=== PATIENT | female | born 1965 | race Caucasian/White ===

== ENCOUNTER 2016-09-19 12:22 | Inpatient (IN) ==
[2016-09-19] MEDS ORDERED: ONDANSETRON 4 MG/2 ML VIAL IV PRN ×2 (12:31→17:04)
[2016-09-19] MEDS ORDERED: ALBUTEROL/IPRATROPIUM 3 ML NEB RESP TX PRN (12:36)
--- NOTE | 2016-09-19 12:42 | Pulmonology History & Physical ---
<JenyJuliana brantley - Last Filed: 09/19/16 12:42> History of Present Illness Chief complaint: RLQ pain, acute appendicitis History of present illness: Ms. Barrientos is a 51 year old female <ArtemRosalio zuniga - Last Filed: 09/19/16 16:07> History of Present Illness History of present illness: Ms. Barrientos is a 51 year old white female who was seen as an emergency work in in my office this morning. Patient was referred by Elsy Faith. She had a 3 day history of right lower quadrant abdominal pain. This is begun a slightly suprapubic area but had localized in the right lower quadrant. She said any movement aggravated it. She may have had some fever she did not think she had any chills she denied any diaphoresis. Patient said her bowel movements have been normal and there were no other complaints of anything. The remainder the review of systems was negative. The patient said approximately 4 years ago it was thought that she might have appendicitis but her symptoms resolved and she did not require surgery Allergies none Medicines. None Past history no medical conditions Social history. Patient has a 4 year college bachelor degree she drinks caffeine every day she is she never used tobacco she is a light drinker of alcohol. She works for [employer] Family history is positive for stroke and arthritis. Lab done at my office. White count was 10,784 segs 10 lymphs 4 monos. H&H is 15.3/44.4 with normal indices platelets 197,000. Urinalysis was normal. Creatinine was 0.62 BUN 16 glucose 99 alkaline phosphorus transaminases total bilirubin albumin sodium potassium and chloride were normal total protein was 8.3 with normal being 6.4-8.[address] scan of the abdomen and pelvis showed acute appendix Physical exam. Patient's 5 feet 6 inches tall. Weighs 175 pounds. Blood pressure 124/84. O2 sats 95%. Heart rate was 88 and regular respiratory rate was 18-20 Psychiatric oriented 3. Intelligent HEENT were normal. Neurologic. Cranial nerves are intact. Long track motor functions intact sensory exam was not done gait was normal allowing for abdominal pain. Neck. Symmetrical. No meningismus. Upper edge of the thyroid felt normal. Lymphatics. No submandibular cervical supraclavicular or epitrochlear adenopathy. Arterial and venous exam neck upper and lower extremities are normal Chest symmetrical clear breath sounds no chest wall tenderness Heart. Regular. No gallop Abdomen. Direct tenderness at McBurney's point. Indirect tenderness at McBurney's point with pressure in the left lower quadrant of the abdomen. No direct or indirect rebound. and rectal deferred Extremities no clubbing no edema no deep venous thrombophlebitis Skin of the face hands and legs was normal. No other areas of skin were examined The remainder the physical exam is noncontributory Impression. 1. Acute appendicitis. Plan. 1. Fluids 2. Antibiotics 3. Have consult to Dr. Armond Lerma the third surgery is planned for today Exam (Pulmonay) H&P - Constitutional Vitals: Period Temp Pulse Resp BP Sys/Pettit Pulse Ox Last 24 Hr 98.5 F 992 18 182/97
--- NOTE | 2016-09-19 13:39 | CT Report ---
CT abdomen pelvis wo/w con Indication: Right lower quadrant abdominal pain. History of prior ovarian cyst. Comparison: None. Technique: CT of the abdomen and pelvis was performed prior to and following the administration of intravenous contrast. The CT examination was performed using one or more of the following dose reduction techniques: Automatic exposure control, adjustment of the mA and kV according to patient size, use of acute or iterative reconstruction techniques. Findings: Subcentimeter well-defined foci of hypoattenuation within the left and right hepatic lobe likely reflect cysts or hemangiomas. These lesions are too small to further characterize. The appendix is diffusely enlarged measuring up to 13 mm in cross-sectional dimension. Periappendiceal fat stranding is present. No appendicolith is demonstrated. Findings are compatible with acute appendicitis. Otherwise, the imaged structures of the lower chest, liver, spleen, pancreas, adrenal glands, kidneys, aorta, inferior vena cava, stomach, bowel, and intrapelvic contents as well as bony structures soft tissues and musculature the body wall demonstrate no evidence of significant pathology. Impression: 1. Findings compatible with acute appendicitis. No perforation is demonstrated. Critical test results were called to Brisa Gomez RN, 5 E., at 1333 hours 09/19/2016 . 09/19/2016 1:28 PM PROCEDURE INTERPRETED AT [facility] DEPARTMENT OF RADIOLOGY Final Report Signed by: Dr. Alonso Zimmer
--- NOTE | 2016-09-19 14:12 | XRay Report ---
XR chest 2V Indication: Shortness of breath. Comparison: None. Technique: PA and lateral chest x-ray was performed. Findings: The heart size is within normal limits. The mediastinal contour demonstrates no significant abnormality. The lungs are clear. Bones and soft tissues demonstrate no acute abnormality. Impression: 1. No active cardiopulmonary disease. 09/19/2016 2:09 PM PROCEDURE INTERPRETED AT [facility] DEPARTMENT OF RADIOLOGY Final Report Signed by: Dr. Alonso Zimmer
[2016-09-19] MEDS: DEXTROSE 5% NACL 0.45% 1,000 ML IV SCH (14:39)
--- NOTE | 2016-09-19 14:49 | General Surgery Consult Note ---
Assessment and Plan - Time spent with patient Time spent with patient: Less than 30 minutes (1) Appendicitis Status: Acute Assessment and plan: The patient has exquisite right lower quadrant tenderness and history and CT scan consistent with acute appendicitis without rupture. I discussed treatment with IV antibiotics and laparoscopic appendectomy. The procedure and risk of been outlined in detail and she wishes to proceed we will take her to the operating room today. Current Visit: Yes Qualifiers: Appendicitis type: acute appendicitis Acute appendicitis type: with localized peritonitis Qualified Code(s): K35.3 - Acute appendicitis with localized peritonitis History of Present Illness Chief complaint: abdominal pain History of present illness: Ms. Barrientos is a 51 year old female With a three-day history of right lower quadrant abdominal pain. The pain is moderately severe and is constant. It is worse with walking and movement. He feels better if she lies still. She has not had nausea or vomiting. She has had some anorexia. She has not had fever or chills. She had a CT scan showing acute appendicitis. Home Medications Medication Instructions Recorded Confirmed Type No Known Home Medications [No 09/19/16 09/19/16 History Known Home Medications] Allergies Allergy/AdvReac Type Severity Reaction Status Date / Time Unable to Obtain Allergy Verified 09/19/16 13:37 Medical,Surgical,& Family Hx - Medical History Respiratory: History of: Asthma Musculoskeletal: No history of: Amputation - Surgical History Cardiac Surgeries: Patient Denies: Cardiac Catheterization Neurologic Surgeries: Patient denies: Neurologic Surgery Abdominal Surgeries: Patient denies: Abdominal Surgery Reproductive Surgeries: Surgical HX of;: Tubal Ligation Patient denies;: Genitourinary Surgery, Gynecologic Surgery - Family History Family History: Reports;: Family Diabetes (father), Family Hypertension (father) , Family Stroke (father) - Social History Smoking Status: Never smoker Type of Drug Use: None - Constitutional Constitutional: Absent: anorexia, chills, fever(s) - Cardiovascular Cardiovascular: Absent: chest pain at rest, chest pain with activity, dyspnea, dyspnea on exertion - Respiratory Respiratory: Absent: cough, dyspnea, hemoptysis, dyspnea on exertion - Gastrointestinal Gastrointestinal: Present: abdominal pain. Absent: cramping, hematemesis, hematochezia, nausea, vomiting, jaundice - Genitourinary Genitourinary: Absent: hematuria - Musculoskeletal Musculoskeletal: Absent: back pain - Neurological Neurological: Absent: focal weakness Exam - Constitutional Vitals: Period Temp Pulse Resp BP Sys/Pettit Pulse Ox Last 24 Hr 98.5 F 992 18 182/97 General appearance: no acute distress - Head Head exam: Present: normocephalic - Eye Eye exam: Absent: scleral icterus - ENT Mouth exam: Present: normal voice - Neck Neck exam: Present: trachea midline. Absent: tenderness, thyromegaly - Respiratory Respiratory exam: Present: clear to auscultation bilaterally. Absent: accessory muscle use - Cardiovascular Cardiovascular exam: Present: RRR - GI/Abdominal GI/Abdominal exam: Present: tenderness, soft. Absent: distended, guarding, mass , rebound - Extremities Exam Extremities exam: Absent: edema - Neurological Exam Neurological exam: Present: alert, oriented X3. Absent: motor sensory deficit Speech: Present: normal - Skin Skin exam: Present: normal color Quality Measures - VTE Contraindication to Pharmacological VTE Prophylaxis: High Risk of Bleeding - Stroke Symptom Onset Unknown: No Results - Diagnostic Findings Procedure: CT Abdomen and Pelvis: image reviewed by me, report reviewed by me
[2016-09-19] MEDS ORDERED: TISSUE ADHESIVE 1 EACH APPLICATOR TOP ONE (15:06)
[2016-09-19] MEDS ORDERED: LIDOCAINE 2%/EPI 20 ML VIAL ONE (15:07)
[2016-09-19] MEDS ORDERED: BUPIVACAINE MPF 0.25% /EPI 30 ML VIAL ONE (15:07)
[2016-09-19 15:16] LABS: Magnesium 2.3 MG/DL (1.8-2.4); Thyroid Stimulating Hormone 1.4 uIU/ml (0.358-3.74)
--- NOTE | 2016-09-19 15:24 | EKG Report ---
Stationary ECG Study [facility] Test Date: 09/19/2016 1:58:16 PM Pat Name: RON PEREZ Department: Room: 536 Gender: F Secondary English Teacher: : 1965 Requested by: Goldy Fermin Order Number: [id number] Reading MD: ALBERTO HOLLY Intervals [place] Rate: 77 P: 44 SD: 202 QRS: 44 QRSD: 89 T: 50 QT: 385 QTc: 416 Interpretive Statements (DR ALBERTO HOLLY TO [facility]) SINUS RHYTHM Electronically Signed On 09-21-16 17:50:25 CDT by ALBERTO HOLLY [email or web address]
[2016-09-19] MEDS ORDERED: LIDOCAINE 2% 5 ML VIAL ONE (16:06)
[2016-09-19] MEDS ORDERED: ROCURONIUM 100 MG/10 ML VIAL IV ONE (16:06)
[2016-09-19] MEDS ORDERED: GLYCOPYRROLATE 0.4 MG/2 ML VIAL ONE (16:06)
[2016-09-19] MEDS ORDERED: NEOSTIGMINE 10 MG/10 ML VIAL ONE (16:06)
[2016-09-19] MEDS ORDERED: ONDANSETRON 4 MG/2 ML VIAL ONE (16:06)
[2016-09-19] MEDS ORDERED: PROPOFOL 200 MG/20 ML VIAL IV ONE (16:06)
[2016-09-19] MEDS: LACTATED RINGERS 1,000 ML IV SCH (16:10)
[2016-09-19] MEDS ORDERED: MORPHINE 2 MG/1 ML SYRINGE IV PRN (16:43)
--- NOTE | 2016-09-19 16:43 | Operative Note ---
Date of procedure: 09/19/16 Pre-op diagnosis: acute appendicitis Post-op diagnosis: same Procedure: Laparoscopic appendectomy Findings and technique: After informed consent was obtained the patient was brought the operating room and placed in spine position. After successful induction with general anesthesia the patient's abdomen was prepped and draped in usual sterile fashion. Local anesthesia was infiltrated the umbilicus where an open technique was used to enter the perineal cavity under direct vision and Clint cannula inserted. Pneumoperitoneum was established and the camera inserted. 5 mm ports were placed in the right upper quadrant and left lower quadrant under camera vision and the appendix was easily visualized and noted to be inflamed but not perforated. There was no purulence on its surface but it was hard and enlarged and indurated. The appendix was retracted upwards and a Endo MICHELINE stapling device fired across the mesial appendix with vascular obi and then across the base of the appendix. The appendix was placed in an Endo Catch bag and removed through the umbilical port site. The bed of dissection was inspected and no bleeding noted. This was irrigated and once again inspected and no bleeding noted. The ports removed and no bleeding noted from the port sites. The gas was evacuated from the abdomen and the fascial defect at the umbilicus closed with running 0 Monocryl suture. The skin incisions were then closed with 4-0 Vicryl subcutaneous suture and tissue adhesive. She appeared to tolerate the procedure well. Anesthesia: MATY, local Surgeon / Physician: Hugo Lerma III. Estimated blood loss: minimal Specimens: other (appendix) Condition: stable Disposition: PACU Discharge Plan - Discharge Medications No Action No Known Home Medications [No Known Home Medications] - Follow Up or Referral - Forms/Instructions
--- NOTE | 2016-09-19 16:57 | Anesthesia ---
Anesthesia Post OP - Post Ansesthetic Evaluation Patient seen in post op: Yes Resp: within normal limits CV: within normal limits Mental: within normal limits Temp: within normal limits [id number]: within normal limits Nausea and Vomiting: within normal limits Pain: within normal limits
[2016-09-19] MEDS ORDERED: HYDROmorphone 2 MG/1 ML VIAL IV PRN (17:04)
[2016-09-19] MEDS ORDERED: fentaNYL 100 MCG/2 ML VIAL ONE (17:04)
[2016-09-19] MEDS ORDERED: SEVOFLURANE 1 UNIT/15 MINUTE INH ONE (17:04)
[2016-09-19] MEDS ORDERED: ACETAMINOPHEN 1,000 MG/100 ML VIAL IV ONE (17:05)
[2016-09-19] MEDS ORDERED: MIDAZOLAM 2 MG/2 ML VIAL ONE (17:05)
[2016-09-19] MEDS: traMADol 50 MG TABLET PO PRN (18:31)
[2016-09-19] MEDS: cefOXitin 1,000 MG in SODIUM CHLORIDE 0.9% 100 ML IV SCH (22:03)
[2016-09-20] MEDS: DEXTROSE 5% NACL 0.45% 1,000 ML IV SCH (03:48)
[2016-09-20] MEDS: cefOXitin 1,000 MG in SODIUM CHLORIDE 0.9% 100 ML IV SCH ×2 (04:05→09:03)
[2016-09-20] MEDS: traMADol 50 MG TABLET PO PRN (04:06)
[2016-09-20 06:39] LABS: Basophils % 0.7 % (0.0-0.8); Eosinophils # 0.2 10*3/uL (0.0-0.87); Eosinophils % 2.9 % (0.00-10.9); Hematocrit 35.4 VOL% (35.7-47.0); Immature Granulocytes % 0.2 %; Immature Granulocytes Absolute 0.01 #; Lymphocytes # 1.4 10*3/uL (1.4-4.0); Lymphocytes % 24.4 % (21.3-54.2); Mean Corpuscular HGB Conc 33.9 GM/DL (32-36); Mean Corpuscular Hemoglobin 31 PG (27-34); Mean Corpuscular Volume 90.3 FL (87-102); Mean Platelet Volume 11.3 FL (9.6-12.0); Monocytes # 0.4 10*3/uL (0.11-0.8); Monocytes % 6.7 % (1.7-12.7); Neutrophils # 3.8 10*3/uL (1.4-7.4); Neutrophils % 65.1 % (38.7-73.9); Platelet Count 165 T/CUMM (130-400); Red Blood Count 3.92 MC/CUMM (3.8-5.5); Red Cell Distribution Width 11.9 % (9.3-17.3); White Blood Count 5.8 T/CUMM (4-12)
[2016-09-20 07:16] LABS: Calcium 8.3 MG/DL (8.5-10.1); Osmolality,Calculated 286.7 MOS/KG (273-304); Potassium 4.9 MMOL/L (3.5-5.1)
[2016-09-20] MEDS: LACTATED RINGERS 1,000 ML IV SCH (07:30)
--- NOTE | 2016-09-20 09:34 | Event Note ---
She feels much better. She is afebrile with stable vital signs. She has minimal abdominal pain as expected postoperatively. She wants to go home which I think is fine. I would like to see her back in my clinic in 1 week. Discharge instructions were given.
[2016-09-20 10:45] VITALS: BP 96/46
--- NOTE | 2016-09-20 14:21 | Pulmonology Progress Note ---
Pulmonary - PN: Subj Interval history: This 51-year-old white female had an appendectomy yesterday. She is done extremely well. She has had no significant pain. She is seen along with her , daughter and son-in-law. She is anxious to go home. Dr. Maria Guadalupe Coto is agreeable and I am agreeable. We have discussed what she needs to watch for. We will also will arrange for a follow-up with Juliana Fermin nurse practitioner. Labs been reviewed. Medicines been reviewed. Vital signs. See below Psychiatric. Oriented 3 Neurologic. Cranial nerves are intact long track motor functions intact Neck. Symmetrical. No meningismus. Lymphatics. No submandibular cervical supraclavicular adenopathy. Chest. Clear Heart. Regular Abdomen postsurgical. Positive bowel sounds Extremities. No edema no evidence of deep venous thrombophlebitis. The remainder the physical exam is negative. Plan. Discharge. Follow-up appointment with Juliana Fermin nurse practitioner. See discharge Exam (Progress Note) - Constitutional Vitals: Period Temp Pulse Resp BP Sys/Pettit Pulse Ox Last 24 Hr 97.4 F-98.2 F 55-86 16-20 96-135/46-77 97-100 Results - Labs CBC & BMP: 09/20/16 06:07 09/20/16 06:07 Specialty Discharge - Follow Up or Referrals Follow up with: Hugo Lerma III., MD [Physician] - 1 Week Juliana Fermin CFNP [Advanced Practice Nurse] - (follow up 4 months with a CBC, CMP, TSH, Lipid profile. Please call and schedule and call pt with appt date and time. [phone].)
--- NOTE | 2016-09-20 14:27 | Discharge Summary ---
Hospital Course - Hospital Course Hospital Course: This 51-year-old white female was referred to me by Elsy Faith. She was seen in my office on 09/19/2016 by Juliana Fermin nurse practitioner. Patient was found to have acute appendicitis. She was admitted to the hospital. Dr. Armond Lerma the third saw the patient surgical consultation. That night she had an appendectomy. She did very well. Patient and her family wanted discharge on 05/2017. Both Dr. Lerma and I agree that this was appropriate. By CT scan criteria by surgical criteria this patient had acute appendicitis. Final pathology is pending. EKG. Regular sinus rhythm. Normal axis. No acute changes. Normal tracing Lab. See admit note. Past history. This patient takes no medicines and has no medical conditions and she has no known allergies. Social history. Patient is . On the day of discharge I met her daughter. Daughter was recently and her was present. He is symmetrical. I invited him to come make rounds with me when he gets a little further along in school. Impression. Acute appendicitis. Status postop surgical removal 09/19/2016. Plan. 1. Discharge 2. I wrote the patient a prescription for tramadol 50 mg. She can take 1 up to 4 times a day. I gave her 35 with no refills. 3. The patient's followed by gynecology. She is been told she needs to be followed by family practice or by medicine. I have made an appointment in 4 months to see Juliana Fermin nurse practitioner. She will have a TSH. CBC. CMP 12. Lipoprotein profile. 4. Patient will call my office on a as needed basis Specialty Discharge - Follow Up or Referrals Follow up with: Hugo Lerma III., MD [Physician] - 1 Week Juliana Fermin CFNP [Advanced Practice Nurse] - (follow up 4 months with a CBC, CMP, TSH, Lipid profile. Please call and schedule and call pt with appt date and time. [phone].) Discharge Plan - Discharge Data Disposition: Disch To Home/Self Care - Discharge Medications No Action No Known Home Medications [No Known Home Medications] - Follow Up or Referral Follow Up: Hugo Lerma III., MD [Physician] - 1 Week Juliana Fermin CFNP [Advanced Practice Nurse] - (follow up 4 months with a CBC, CMP, TSH, Lipid profile. Please call and schedule and call pt with appt date and time. [phone].) - Forms/Instructions Exam - Constitutional Vitals: Period Temp Pulse Resp BP Sys/Pettit Pulse Ox Last 24 Hr 97.4 F-98.2 F 55-86 16-20 96-135/46-77 97-100 Discharge Results Procedures and tests throughout hospitalization: Pending Orders 09/19/16 13:46 Blood Culture Routine Labs on day of discharge: Labs from last 24 hours 09/20/16 09/20/16 09/19/16 06:07 06:07 13:47 WBC 5.8 RBC 3.92 Hgb 12.0 Hct 35.4 L MCV 90.3 MCH 31 MCHC 33.9 RDW 11.9 Plt Count 165 MPV 11.3 Neut % (Auto) 65.1 Lymph % (Auto) 24.4 [place] % (Auto) 6.7 Eos % (Auto) 2.9 Baso % (Auto) 0.7 Neut # (Auto) 3.8 Lymph # (Auto) 1.4 [place] # (Auto) 0.4 Eos # (Auto) 0.2 Baso # (Auto) 0.0 Immature Gran % 0.2 Nucleated RBC % 0.0 Immature Gran # 0.01 Nucleated RBCs # 0.00 Sodium 145 Potassium 4.9 Chloride 109 H Carbon Dioxide 28 Anion Gap 12.9 BUN 10 Creatinine 0.70 GFR Calculation 109 BUN/Creatinine Ratio 14.00 Glucose 103 Calculated Osmolality 286.7 Calcium 8.3 L Magnesium Free T4 1.38 TSH 3rd Generation 09/19/16 13:47 WBC RBC Hgb Hct MCV MCH MCHC RDW Plt Count MPV Neut % (Auto) Lymph % (Auto) [place] % (Auto) Eos % (Auto) Baso % (Auto) Neut # (Auto) Lymph # (Auto) [place] # (Auto) Eos # (Auto) Baso # (Auto) Immature Gran % Nucleated RBC % Immature Gran # Nucleated RBCs # Sodium Potassium Chloride Carbon Dioxide Anion Gap BUN Creatinine GFR Calculation BUN/Creatinine Ratio Glucose Calculated Osmolality Calcium Magnesium 2.3 Free T4 TSH 3rd Generation 1.400 DS: Provider Date of admission: 09/19/16 12:42 Primary care physician: . No PCP Attending physician on admission: Rosalio Mcgill MD Consults: 09/19/16 12:33 Consult to Physician [CONS] Routine Comment: Dr. Maria Guadalupe HALL Consulting Provider: Hugo Lerma III. 09/19/16 16:49 Consult to Pharmacy [CONS] Routine Reason for Pharmacy Consult: Adjust Meds Renal Funct Discharging clinician: Rosalio Mcgill MD
--- NOTE | 2016-09-22 12:40 | Pathology Report from [facility] ---
ACCESSION # : [id number] PATIENT NAME : Ron Barrientos ORDERING DR : PAT CAMARILLO III, MD CLINICAL HX: Acute appendicitis POST-OP DX: Same SPECIMEN INFO: Appendix GROSS DESCRIPTION: The specimen is received in formalin labeled with the patient 's name and consists of an appendix with attached mesoappendix. The appendix measures 8.4 cm x up to 1.1 cm. The serosa is brown-peraza with fibrinous exudate and adhesions present. The appendiceal wall is focally edematous with a small amount of hemorrhagic material present. No fecaliths or perforations identified. Career Technical Education Instructor sections submitted in one cassette. DIAGNOSIS FOR RON BARRIENTOS: APPENDIX, APPENDECTOMY: Acute appendicitis. SERVICE DATE: 09/21/2016 REPORT DATE: 09/22/2016 PATHOLOGIST: Amber Pardo M.D. [facility]
== END 2016-09-20 11:28 | disposition home or self-care (01) | DRG 343 ==
LOC: N.ADMINP 12:42 → N.5E 13:11
PROVIDERS: ADMIT Internal Medicine Pulmonary Disease; ATTEND Internal Medicine Pulmonary Disease